=== PATIENT | female | born 1960 | race Caucasian/White ===

== ENCOUNTER 2021-02-17 23:09 | Inpatient (IN) | payer OTHER ==
[~2021-02-17] VITALS: Ht 165.1 cm; Wt 119.7 kg
--- NOTE | 2021-02-17 23:49 | NUR ---
PT PRESENTS TO ER FOR ABDOMINAL PAIN ON THE LEFT SIDE UP INTO HER BACK AND SHOULDERS, PT STATES THE PAIN IS LIKE A CRAMPING PAIN, PT STATES SHE HAS NO MEDICAL PROBLEMS OTHER THAN MS
[2021-02-18] MEDS ORDERED: SODIUM CHLORIDE FLUSH 10ML SYR IVF ONE
[2021-02-18] MEDS ORDERED: HYDROmorphone 2 MG/ML, 1ML IV ONE
[2021-02-18] MEDS ORDERED: SODIUM CHLORIDE 0.9% 1,000ML IVBOLUS ONE
[2021-02-18] MEDS ORDERED: HYDROmorphone 2 MG/ML, 1ML ONE ×2 (00:22→03:37)
[2021-02-18] MEDS ORDERED: ONDANSETRON 2MG/ML, 2ML ONE ×2 (00:22→03:41)
[2021-02-18 00:48] LABS: BASOPHILS % (AUTO) 0 % (0-1); EOSINOPHILS % (AUTO) 1 % (1-7); LYMPHOCYTES % (AUTO) 14 % (22-44); MEAN CORPUSCULAR HEMOGLOBIN 29.5 pg (27.0-34.8); MEAN CORPUSCULAR HGB CONC 33.3 g/dL (32.4-35.8); MEAN PLATELET VOLUME 9.1 fL (7.4-10.4); MONOCYTES % (AUTO) 5 % (2-9); NEUTROPHILS % (AUTO) 80 % (42-75); PLATELET COUNT 288 x10^3/uL (130-400); RED BLOOD COUNT 5.08 x10^6/uL (3.82-5.3); RED CELL DISTRIBUTION WIDTH 14.5 % (9.6-15.2)
[2021-02-18 00:50] LABS: MICROSCOPIC NOT IND
[2021-02-18 01:00] LABS: ALBUMIN 3.6 g/dL (3.4-5.0); ANION GAP 6 mmol/L (5-15); CALCIUM 9.3 mg/dL (8.5-10.1); CHLORIDE 103 mmol/L (98-107); CREATININE 0.72 mg/dL (0.55-1.02)
[2021-02-18 01:03] LABS: ALANINE AMINOTRANSFERASE 24 U/L (12-78); ALKALINE PHOSPHATASE 87 U/L (45-117); BILIRUBIN,TOTAL 0.6 mg/dL (0.2-1.0); TOTAL PROTEIN 7.8 g/dL (6.4-8.2)
--- NOTE | 2021-02-18 02:24 | NUR ---
PATIENT HAS [employer] INSURANCE, CALLED [facility] SPOKE WITH LESIA MULLER ABOUT A DIRECT ADMIT. THEY ARE ON CLOSED [facility]ERT.
[2021-02-18] MEDS ORDERED: METRONIDAZOLE PMX 500MG/100ML 100 ML IV ONE (02:30)
[2021-02-18] MEDS ORDERED: CIPROFLOXACIN/PMX 400MG/200ML 200 ML IVPB ONE (02:30)
[2021-02-18] MEDS ORDERED: METRONIDAZOLE PMX 500MG/100ML 100 ML ONE (02:38)
--- NOTE | 2021-02-18 03:06 | NUR ---
PT REFUSING CIPRO IV, NOTIFIED, CIPRO CHANGED TO [facility]
[2021-02-18] MEDS ORDERED: CEFTRIAXONE 1,000 MG in DEXTROSE 5% 50 ML IVPB ONE (03:30)
[2021-02-18] MEDS ORDERED: HYDROmorphone 2 MG/ML, 1ML IVPush PRN ×2 (04:00→04:30)
[2021-02-18] MEDS ORDERED: OXYcodone IR 5MG TABLET PO PRN (04:30)
[2021-02-18] MEDS ORDERED: LABETALOL 5MG/ML, 20ML IVPush PRN (04:30)
[2021-02-18] MEDS ORDERED: MELATONIN 5 MG TABLET PO PRN (04:30)
[2021-02-18] MEDS ORDERED: POLYETHYLENE GLYCOL 17 GM PACKET PO PRN (04:30)
[2021-02-18] MEDS ORDERED: CIPROFLOXACIN/PMX 400MG/200ML 200 ML IV SCH (04:30)
[2021-02-18] MEDS ORDERED: ONDANSETRON 2MG/ML, 2ML IVPush ONE ×2 (04:30)
[2021-02-18] MEDS: LACTATED RINGERS 1,000 ML IV SCH ×2 (04:42→16:47)
[2021-02-18] MEDS: ENOXAPARIN 40 MG/0.4 ML SQ SCH (04:42)
[2021-02-18 04:47] VITALS: BP 105/71
[2021-02-18] MEDS ORDERED: PROP60TA PO (06:33)
[2021-02-18] MEDS ORDERED: ASPI-963 PO (06:33)
[2021-02-18] MEDS ORDERED: FAMO-79 PO (06:34)
[2021-02-18 07:57] VITALS: BP 114/76
[2021-02-18] MEDS: ACETAMINOPHEN 325 MG TABLET PO PRN ×2 (09:41→16:46)
[2021-02-18] MEDS: FAMOTIDINE 20 MG/2 ML IVPush SCH ×2 (09:41→20:18)
[2021-02-18] MEDS: ERTAPENEM 1 GM in SODIUM CHLORIDE 0.9% 50 ML IV SCH (11:58)
[2021-02-18] MEDS: METRONIDAZOLE PMX 500MG/100ML 100 ML IV SCH ×2 (12:37→20:18)
[2021-02-18 12:54] VITALS: BP 104/70
[2021-02-18 20:05] VITALS: BP 98/66
[2021-02-18] MEDS: DOCUSATE 100 MG CAPSULE PO SCH (20:18)
[2021-02-19 01:45] VITALS: BP 104/69
[2021-02-19] MEDS: METRONIDAZOLE PMX 500MG/100ML 100 ML IV SCH ×3 (04:47→22:18)
[2021-02-19] MEDS: ENOXAPARIN 40 MG/0.4 ML SQ SCH ×2 (04:47→17:40)
[2021-02-19] MEDS: ACETAMINOPHEN 325 MG TABLET PO PRN ×3 (04:51→19:33)
[2021-02-19 06:55] VITALS: BP 132/75
[2021-02-19] MEDS: FAMOTIDINE 20 MG/2 ML IVPush SCH ×2 (08:48→20:56)
[2021-02-19] MEDS: LACTATED RINGERS 1,000 ML IV SCH (08:48)
[2021-02-19] MEDS: DOCUSATE 100 MG CAPSULE PO SCH ×2 (08:48→20:56)
[2021-02-19] MEDS: ERTAPENEM 1 GM in SODIUM CHLORIDE 0.9% 50 ML IV SCH (11:32)
[2021-02-19 12:21] VITALS: BP 105/55
[2021-02-19] MEDS: ONDANSETRON 2MG/ML, 2ML IVPush PRN (19:33)
[2021-02-19 20:35] VITALS: BP 103/58
[2021-02-19] MEDS ORDERED: PROPRANOLOL 40 MG TABLET ONE (20:53)
[2021-02-19] MEDS ORDERED: PROPRANOLOL 20 MG TABLET ONE (20:53)
[2021-02-19] MEDS ORDERED: PROPRANOLOL 60 MG TABLET PO SCH (21:00)
[2021-02-19] MEDS ORDERED: FLUCONAZOLE 200 MG TABLET PO SCH (22:00)
[2021-02-20 00:44] VITALS: BP 97/65
[2021-02-20] MEDS: ENOXAPARIN 40 MG/0.4 ML SQ SCH (05:00)
[2021-02-20] MEDS: ONDANSETRON 2MG/ML, 2ML IVPush PRN (06:10)
[2021-02-20] MEDS: METRONIDAZOLE PMX 500MG/100ML 100 ML IV SCH (06:10)
[2021-02-20 07:05] VITALS: BP 110/75
[2021-02-20] MEDS: DOCUSATE 100 MG CAPSULE PO SCH (07:32)
[2021-02-20] MEDS: LACTATED RINGERS 1,000 ML IV SCH (07:36)
[2021-02-20] MEDS: FAMOTIDINE 20 MG/2 ML IVPush SCH (07:36)
[2021-02-20] MEDS ORDERED: ASPIRIN 81 MG TABLET EC PO SCH (09:00)
[2021-02-20] MEDS ORDERED: PROPRANOLOL 60 MG TABLET PO SCH (09:00)
[2021-02-20 09:07] LABS: BASOPHILS % (AUTO) 0 % (0-1); EOSINOPHILS % (AUTO) 2 % (1-7); LYMPHOCYTES % (AUTO) 12 % (22-44); MEAN CORPUSCULAR HEMOGLOBIN 29.2 pg (27.0-34.8); MEAN CORPUSCULAR HGB CONC 32.8 g/dL (32.4-35.8); MEAN PLATELET VOLUME 8.8 fL (7.4-10.4); MONOCYTES % (AUTO) 7 % (2-9); NEUTROPHILS % (AUTO) 79 % (42-75); PLATELET COUNT 238 x10^3/uL (130-400); RED BLOOD COUNT 3.96 x10^6/uL (3.82-5.3); RED CELL DISTRIBUTION WIDTH 14.4 % (9.6-15.2)
[2021-02-20 09:23] LABS: ANION GAP 6 mmol/L (5-15); CALCIUM 8.3 mg/dL (8.5-10.1); CHLORIDE 108 mmol/L (98-107); CREATININE 0.61 mg/dL (0.55-1.02)
[2021-02-20] MEDS ORDERED: FLUC150T PO (11:37)
[2021-02-20] MEDS ORDERED: CIPR500T87 PO (11:37)
[2021-02-20] MEDS ORDERED: METR500T PO (11:37)
[2021-02-20] MEDS ORDERED: ACET-1600 PO (11:38)
[2021-02-20] MEDS: ERTAPENEM 1 GM in SODIUM CHLORIDE 0.9% 50 ML IV SCH (11:54)
[2021-02-20 12:27] VITALS: BP 103/96
[2021-02-20 13:20] VITALS: BP 103/69
== END 2021-02-20 13:31 | disposition home or self-care (01) | DRG 392 ==
LOC: ED 02-18 00:51 → INTOOBSV 02-18 03:08 → OBSVTOIN 02-18 03:08 → EDIP 02-18 03:08 → 3N 02-18 04:25
PROVIDERS: ADMIT Internal Medicine; ATTEND Internal Medicine
DX: K57.32 Diverticulitis of large intestine without perforation or abscess without bleeding (principal); Z68.41 Body mass index [BMI] 40.0-44.9, adult; G35 Multiple sclerosis; E66.01 Morbid (severe) obesity due to excess calories; K21.9 Gastro-esophageal reflux disease without esophagitis; Z96.651 Presence of right artificial knee joint; Z88.5 Allergy status to narcotic agent; Z91.018 Allergy to other foods; Z91.010 Allergy to peanuts; Z90.49 Acquired absence of other specified parts of digestive tract; Z88.0 Allergy status to penicillin; Z82.49 Family history of ischemic heart disease and other diseases of the circulatory system; Z83.3 Family history of diabetes mellitus; Z82.3 Family history of stroke; Z80.8 Family history of malignant neoplasm of other organs or systems; Z71.3 Dietary counseling and surveillance
CPT/HCPCS: 36415; 74176; 80048; 80053; 81003; 83605; 83690; 83735; 84100; 85025; 96365; 96367; 96375; 99285; G0378; J0696; J1170; J1335; J1650; J2405; J7030; J7120